=== PATIENT | female | born 1950 | race Caucasian/White ===

== ENCOUNTER → 2018-11-12 | Outpatient (CLI) | payer MEDICARE ==
[~2018-11-12] MED LIST: AMOXICILLIN 50500 M1 PO; AMOXICILLIN/POTASSIU PO; ASPIRIN EC325 M1 PO; DOXEPIN 25 MG C25 M1 PO; LIDODERM TP; NICOTINE TRANSD21 M1 TD; PREMARIN; PREMARIN1.25 MG PO; PROTANDIM PO; SYNTHROID; SYNTHROID50 MCG PO; ZOCOR 20 MG TAB20 M1 PO
--- NOTE | 2018-11-12 13:05 | 2DMMODE ---
[place] [address] 2 D/M-MODE ECHOCARDIOGRAM Name: JOSE JACOBSON FRANTZ Room: [facility]#: [id number] Admission: 11/12/18 Attend Phys: Cierra Driver Discharge: Date of : 46 Date of Service: 11/12/18 1305 Report #: [id number] THIS REPORT FOR: //name// APPROVED REPORT Study performed: 11/12/2018 08:00:13 EXAM: Comprehensive 2D, Doppler, and color-flow Echocardiogram Patient Location: Out-Patient BSA: 1.78 HR: 78 bpm BP: 162/80 mmHg Other Information Study Quality: Good Indications Dyspnea Hypertension/HDD 2D Dimensions IVSd: 9.74 (7-11mm) LVOT Diam: 20.75 (18-24mm) LVDd: 37.64 mm PWd: 9.59 (7-11mm) Ascending Ao: 27.01 (22-36mm) LVDs: 27.41 (25-40mm) Aortic Root: 22.98 mm Volumes Left Atrial Volume (Systole) LA ESV Index: 16.40 mL/m2 Aortic Valve AoV Peak Asif.: 1.20 m/s AO Peak Gr.: 5.80 mmHg LVOT Max P.70 mmHg AO Mean Gr.: 2.61 mmHg LVOT Mean P.71 mmHg LVOT Max V: 1.29 m/s AO V2 VTI: 22.57 cm LVOT Mean V: 0.74 m/s JOSE ROBERTO (VTI): 3.64 cm2 LVOT V1 VTI: 24.31 cm AI Caswell: 2.73 m/s2 AI PHT: 449.06 ms Mitral Valve E/A Ratio: 1.09 MV Decel. Time: 194.76 [place] [address] 2 D/M-MODE ECHOCARDIOGRAM Name: [facility] Room: [facility]#: [id number] Admission: 11/12/18 Attend Phys: Cierra Driver Discharge: Date of : 46 Date of Service: 11/12/18 1305 Report #: [id number] MV E Max Asif.: 0.77 m/s MV PHT: 56.48 ms MVA (PHT): 3.90 cm2 TDI E/Lateral E': 7.70 E/Medial E': 11.00 Medial E' Asif.: 0.07 m/s Lateral E' Asif.: 0.10 m/s Pulmonary Valve PV Peak Asif.: 0.94 m/s PV Peak Gr.: 3.57 mmHg Left Ventricle The left ventricle is normal size. There is normal LV segmental wall motion. There is normal left ventricular wall thickness. Left ventricular systolic function is normal. The left ventricular ejection fraction is within the normal range. LVEF is 55-60%. The left ventricular diastolic function is normal. Right Ventricle The right ventricle is normal size. The right ventricular systolic function is normal. Atria The left atrium size is normal. The right atrium size is normal. Aortic Valve Aortic valve is mildly calcified. Mild aortic regurgitation. There is no aortic valvular stenosis. Mitral Valve The mitral valve is normal in structure. Mild mitral regurgitation. No evidence of mitral valve stenosis. Tricuspid Valve The tricuspid valve is normal in structure. There is no tricuspid valve regurgitation noted. Pulmonic Valve Pulmonic valve is not well visualized. There is no pulmonic valvular regurgitation. Great Vessels The aortic root is normal in size. IVC is normal in size and collapses >50% [place] [address] 2 D/M-MODE ECHOCARDIOGRAM Name: JOSE JACOBSON [id number] Admission: 11/12/18 Attend Phys: Cierra Driver Discharge: Date of : 46 Date of Service: 11/12/18 1305 Report #: [id number] Pericardium There is no pericardial effusion. <Conclusion> LVEF is 55-60%. Mild aortic regurgitation. Mild mitral regurgitation. Aortic valve is mildly calcified. <ELECTRONICALLY SIGNED> By: Po Melendrez MD, [facility] 11/12/18 1305 1305 1305 Po Melendrez MD, [facility] /INF
== END ==
LOC: M.CRD 11-06 11:00
DX: I08.0 Rheumatic disorders of both mitral and aortic valves (principal); I10 Essential (primary) hypertension; R06.09 Other forms of dyspnea; Z87.891 Personal history of nicotine dependence